=== PATIENT | female | born 1950 | race Caucasian/White ===

== ENCOUNTER 2018-10-26 18:58 | Observation (INO) | payer BC ==
[~2018-10-26] VITALS: Ht 165.1 cm; Wt 90.6 kg
[~2018-10-26 18:58] MED LIST: ASPI-535 PO; ATOR40TA68 PO; FLEXIRIL; GABA300C16 PO; HYDR-3605 PO; METF500T PO
--- NOTE | 2018-10-26 20:59 | ERD ---
ER Documentation Chief Complaint Chief Complaint SUBSTERNAL PRESSURE X 6 DAYS WITH DIZZINESS HPI The patient is a 68-year-old female, presenting with acute substernal chest pressure, associated with dizziness, dyspnea intermittently for the last 6 days, non-provoked, nonradiating, 5 or 10, no aggravating/relieving factor, similar s ymptoms previously. She denies fever, chills, neck pain, abdominal pain, vomiting, dysuria, diarrhea. She does not smoke nor drink Past medical history: Diabetes mellitus, hyperlipidemia, GERD, fibromyalgia Past surgical history: Bilateral knee arthroscopy ROS All systems reviewed and are negative except as per history of present illness. Medications Home Meds Reported Medications Aspirin Ec (Aspir 81) 81 Mg Tablet.dr, 81 MG PO DAILY, TAB 07/27/14 Metformin Hcl (Glucophage) 500 Mg Tablet, 500 MG PO DAILY, TAB 07/27/14 [Flexiril] No Conflict Check, 10 TID 07/27/14 Hydrocodone Bit/Acetaminophen (Anexsia 7.5/325 Mg Tablet) 1 Tab Tablet, 1 TAB PO PRN for PAIN 07/27/14 Atorvastatin* (Atorvastatin*) 40 Mg Tablet, 40 MG PO HS, TAB 07/27/14 Gabapentin* (Gabapentin*) 300 Mg Capsule, 300 MG PO BID, CAP 07/27/14 Allergies Allergies: Coded Allergies: No Known Drug Allergies (Verified Allergy, Unknown, 07/27/14) PMhx/Soc History of Surgery: No (not stated) Anesthesia Reaction: No Hx Neurological Disorder: No Hx Respiratory Disorders: No Hx Cardiac Disorders: No Hx Psychiatric Problems: No Hx Miscellaneous Medical Probl: Yes (L knee injury, L shld rotator cuff injury, R elbow lat cond injury per pt.) Hx Alcohol Use: No Hx Substance Use: No Hx Tobacco Use: No Physical Exam Vitals Vital Signs Date Temp Pulse Resp B/P (MAP) Pulse Ox O2 O2 Flow FiO2 Time Delivery Rate 10/26/18 86 14 157/84 98 Room Air 20:47 (108) 10/26/18 97.9 96 16 212/104 99 19:26 (140) Physical Exam Const: No acute distress. Head: Atraumatic. Eyes: Normal Conjunctiva. ENT: Normal External Ears, Nose and Mouth. Neck: Full range of motion. No meningismus. Resp: Clear to auscultation bilaterally. Cardio: Regular rate and rhythm. Abd: Soft, non distended, normal bowel sounds, non tender. Skin: No petechiae or rashes. Back: No midline or flank tenderness. Ext: No cyanosis, or edema. Neur: Awake and alert. No focal deficit Psych: Normal Mood and Affect. Result Diagram: 10/26/18210310/26/182149 Results 24 hrs Laboratory Tests Test 10/26/18 21:04 10/26/18 21:50 White Blood Count 7.3 10^3/ul Red Blood Count 4.60 10^6/ul Hemoglobin 13.2 g/dl Hematocrit 41.0 % Mean Corpuscular Volume 89.1 fl Mean Corpuscular Hemoglobin 28.7 pg Mean Corpuscular Hemoglobin Concent 32.2 g/dl Red Cell Distribution Width 14.0 % Platelet Count 306 10^3/UL Mean Platelet Volume 10.1 fl Immature Granulocytes % 0.100 % Neutrophils % 60.4 % Lymphocytes % 31.0 % Monocytes % 5.6 % Eosinophils % 2.2 % Basophils % 0.7 % Nucleated Red Blood Cells % 0.0 /100WBC Immature Granulocytes # 0.010 10^3/ul Neutrophils # 4.4 10^3/ul Lymphocytes # 2.3 10^3/ul Monocytes # 0.4 10^3/ul Eosinophils # 0.2 10^3/ul Basophils # 0.1 10^3/ul Nucleated Red Blood Cells # 0.0 10^3/ul Sodium Level 140 mmol/L Potassium Level 4.7 mmol/L Chloride Level 103 mmol/L Carbon Dioxide Level 29 mmol/L Anion Gap 8 Blood Urea Nitrogen 18 mg/dl Creatinine 0.58 mg/dl Est Glomerular Filtrat Rate mL/min > 60 mL/min Glucose Level 123 mg/dl Calcium Level 9.0 mg/dl Troponin I < 0.012 ng/ml B-Type Natriuretic Peptide 26 PG/ML Current Medications Medications Dose Sig/Chani Start Time Status Last (Trade) Ordered Route PRN Stop Time Admin Dose Reason Admin Aspirin 324 mg ONCE ONCE 10/26/18 DC 10/26/18 (Aspirin) PO 22:00 21:54 10/26/18 22:01 1 inch ONCE ONCE 10/26/18 DC 10/26/18 Nitroglycerin TD 22:00 21:53 10/26/18 22:01 (Nitroglyceri n 2% Oint) Aspirin 81 mg DAILY PO 10/27/18 (Halfprin) 09:00 40 mg HS PO 10/27/18 Atorvastatin 21:00 Calcium (Lipitor) Gabapentin 300 mg BID PO 10/27/18 (Neurontin) 09:00 1 tab Q6 PRN PO 10/26/18 Acetaminophen PAIN 23:00 / Hydrocodone Bitart ([place] (7.5-325)) IV Flush 3 ml PER 10/26/18 (NS 3 ml) PROTOCOL IV 23:00 Ondansetron 4 mg Q6H PRN 10/26/18 HCl (Zofran IV 23:00 Inj) NAUSEA/VOMITI NG 1 tab Q5M PRN 10/26/18 Nitroglycerin SL .CHEST 23:00 PAIN (Nitroglyceri n (Sl Tab) 0.4 Mg) 650 mg Q6H PRN 10/26/18 Acetaminophen PO .PAIN 1-3 23:00 (Tylenol OR TEMP Tab) Morphine 2 mg Q4H PRN 10/26/18 Sulfate IV .PAIN 23:00 (morphine) 7-10 Docusate 100 mg Q12H PRN 10/26/18 Sodium PO 23:00 (Colace) .CONSTIPATION Bisacodyl 5 mg DAILY PRN 10/26/18 (Dulcolax) PO 23:00 .CONSTIPATION Procedures/[place] [address] Radiology Main Line: [phone] DIAGNOSTIC IMAGING REPORT Patient: ERINN READ : 1950 Age: 68 Sex: F MR #: [id number] DOS: 10/26/182058 Ordering MD: LON RAMIREZ MD Location: E/R Room/Bed: PROCEDURE: XR Chest. CLINICAL INDICATION: Chest pain TECHNIQUE: Single portable view of the chest was obtained COMPARISON: No priors for comparison FINDINGS: The trachea is midline. The cardiac silhouette is mildly enlarged and pulmonary vascularity are within normal limits. The lungs are clear. The costophrenic angles are sharp. IMPRESSION: 1. Mild cardiomegaly. No evidence of acute cardiopulmonary disease. RPTAT: AAPP Physician Carmen Date Time Electronically viewed and signed by Sharla Vela Physician on 10/26/2018 23:01 JL/ CC: LON RAMIREZ MD [id number] EKG: Read by emergency physician Rate/Rhythm: Normal Sinus Rhythm 99 beats/min QRS, ST, T-waves: No ST elevation, no T inversion Impression: Normal EKG MEDICAL MAKING DECISION: The patient is a 68-year-old female with multiple cardiac risk factors, presenting with acute chest pain of unclear etiology, concerning for acute ACS. She was treated with aspirin 305 mg p.o. and 1 inch of nitroglycerin ointment to the chest wall for acute chest pain with good response The differential diagnoses considered include but are not limited to acute coronary syndrome, acute myocardial infarction, pericarditis, pulmonary embolism, aortic dissection, pneumonia, pleural effusion, pneumothorax, GERD, chest wall pain. Departure Diagnosis: Primary Impression: Chest pain Condition: Stable Comments The patient's blood pressure was elevated (>120/80) but appears stable without evidence of hypertension emergency or urgency. The patient was counseled about the risks of hypertension and urged to pursue outpatient monitoring and therapy within a week with their primary care physician. I discussed the findings with the patient. I discussed the patient with Dr. Melchor at 10:55 PM, who was made aware of the lab, the treatment, the patient condition. The patient is admitted to [facility] Disclaimer: Inadvertent spelling and grammatical errors are likely due to EHR/dictation software use and do not reflect on the overall quality of patient care. Also, please note that the electronic time recorded on this note does not necessarily reflect the actual time of the patient encounter. LON RAMIREZ MD Oct 26, 2018 20:59
[2018-10-26] MEDS ORDERED: ASPIRIN 81 MG TAB PO ONE (22:00)
[2018-10-26] MEDS ORDERED: NITROGLYCERIN 2% 1 GM OINT PKT TD ONE (22:00)
[2018-10-26] MEDS ORDERED: HYDROCODONE/APAP (7.5/325) TAB PO PRN (23:00)
[2018-10-26] MEDS ORDERED: NITROGLYCERIN (SL) 0.4 MG TAB SL PRN (23:00)
[2018-10-26] MEDS ORDERED: DOCUSATE SODIUM 100 MG CAP PO PRN (23:00)
[2018-10-26] MEDS ORDERED: BISACODYL (EC) 5 MG TAB PO PRN (23:00)
[2018-10-26] MEDS ORDERED: ACETAMINOPHEN 325 MG TAB PO PRN (23:00)
[2018-10-26] MEDS ORDERED: NACL 0.9% 3 ML SYG IV SCH (23:00)
[2018-10-26] MEDS ORDERED: morphine 2 MG INJ IV PRN (23:00)
[2018-10-26] MEDS ORDERED: ONDANSETRON 4 MG INJ IV PRN (23:00)
--- NOTE | 2018-10-26 23:03 | HP ---
Date/Time of Note Date/Time of Note DATE: 10/26/18 TIME: 23:02 Assessment/Plan VTE Prophylaxis SCD applied (from Nsg): Yes Pharmacological prophylaxis: NA/contraindicated Pharm contraindication: low risk/ambulating Lines/Catheters IV Catheter Type (from Nrsg): [place] Lock Assessment/Plan Hospital Course This is a 68-year-old female being admitted to the telemetry floor for: #1 chest pain: Rule out ACS versus GI etiology. Trend cardiac enzymes x3, the first that was negative. Will check an echocardiogram. Will consult cardiology . PRN nitro/morphine. Patient does have a history of fibromyalgia and GERD and she also has tenderness to palpation at the epigastric region. She has been taking Aleve as well. So this could be a GI etiology as well, however will assess for cardiac etiology first. Consider GI consultation. #2 fibromyalgia: We will continue patient's home medications, will hold Aleve at the current time #3 GERD: Continue PPI, hold Aleve. #4 Hyperlipidemia:, Continue aspirin, statin #5 obesity: We will check hemoglobin A1c, lipid panel, TSH #6 DVT GI prophylaxis: SCDs, PPI Further treatment strategy will be implemented as per the clinical course. Result Diagram: 10/26/18210310/26/182149 Results 24hrs Laboratory Tests Test 10/26/18 21:04 10/26/18 21:50 White Blood Count 7.3 Red Blood Count 4.60 Hemoglobin 13.2 Hematocrit 41.0 Mean Corpuscular Volume 89.1 Mean Corpuscular Hemoglobin 28.7 L Mean Corpuscular Hemoglobin Concent 32.2 Red Cell Distribution Width 14.0 Platelet Count 306 Mean Platelet Volume 10.1 Immature Granulocytes % 0.100 Neutrophils % 60.4 Lymphocytes % 31.0 Monocytes % 5.6 Eosinophils % 2.2 Basophils % 0.7 Nucleated Red Blood Cells % 0.0 Immature Granulocytes # 0.010 Neutrophils # 4.4 Lymphocytes # 2.3 Monocytes # 0.4 Eosinophils # 0.2 Basophils # 0.1 Nucleated Red Blood Cells # 0.0 Sodium Level 140 Potassium Level 4.7 Chloride Level 103 Carbon Dioxide Level 29 Anion Gap 8 Blood Urea Nitrogen 18 Creatinine 0.58 Est Glomerular Filtrat Rate mL/min > 60 Glucose Level 123 Calcium Level 9.0 Troponin I < 0.012 B-Type Natriuretic Peptide 26 HPI/ROS Admit Date/Time Admit Date/Time Hx of Present Illness Chief complaint: Substernal chest pain x1 The patient is a 68-year-old female with past medical history of fibromyalgia, arthritis, GERD and lactose intolerance and IBS who presented to the emergency department with substernal chest pain: Patient reports that she has had on and off chest presenting with acute substernal chest pain for the last 1 week. She states that it is associated with shortness of breath. She also states that on Wednesday night she woke up with the chest pain and had shortness of breath and also had dizziness which alarmed her. She has been taking Aleve along with her other medications for her fibromyalgia and her arthritis. She denies any nausea vomiting or diarrhea. She denies any lower extremity edema. She does not report that her symptoms are not associated with food. Allergies: NKDA Medications: Flexeril Lansoprazole Tobramycin/dexamethasone ophthalmic drops Biotin Aleve Aspirin Atorvastatin Gabapentin [place] ROS Const: As per HPI Eyes : No pain discharge or redness or change in visual acuity ENT: No pain, sore throat, congestion, congestion, dysphagia or discharge Respiratory: No shortness of breath, cough, sputum, wheezing, or pleuritic pain Cardiovascular: As per HPI GI : no change in appetite, abdominal pain, nausea, vomiting, diarrhea, constipation, or change in the color his stool Genitourinary: No dysuria, hematuria, flank pain , discharge or CVA tenderness Musculoskeletal: No joint pain, back pain, neck pain, restricted range of motion in neck or joints Skin: No rash, bruising or hives Neuro: As per HPI Endocrine: No polyuria, polydipsia, temperature intolerance Psych: No hallucination, depression, anxiety or suicidal ideation PMH/Family/Social Past Medical History hyperlipidemia, GERD, fibromyalgia Coded Allergies: No Known Drug Allergies (Unverified Allergy, Unknown, 10/27/18) Past Surgical History Bilateral meniscal surgeries, cholecystectomy, x1 Family History Significant Family History: no pertinent family hx Social History Alcohol Use: none Smoking Status: Never smoker Drug Use: none Exam/Review of Systems Vital Signs Vitals Vital Signs Date Temp Pulse Resp B/P (MAP) Pulse Ox O2 O2 Flow FiO2 Time Delivery Rate 10/26/18 86 14 157/84 98 Room Air 20:47 (108) 10/26/18 97.9 19:26 Exam Exam General: Patient is a pleasant female currently lying in bed in no acute distress HEENT: Atraumatic, normocephalic. The pupils are equal, round and reactive. Extraocular motor are intact Neck: Supple with full range of motion. No rigidity or meningismus Chest: Mild tenderness palpation over the xiphoid process Lungs: Clear to auscultation bilaterally no crackles rales or wheezing Heart: Normal S1-S2, Regular rhythm and rate. No murmur, S3, or S4 Abdomen: Soft , mild tenderness palpation of the epigastric area, nondistended , bowel sounds are present. No guarding no rebound tenderness , No masses or organomegaly. No costovertebral temporal angle mass Extremities: Normal to inspection, no edema no cyanosis Neurologic: Normal mental status, speech normal, cranial nerves II through XII are intact, motor and sensory are intact, no focal weakness Additional Comments EKG: Normal sinus rhythm at approximately 99 bpm, T wave inversions in lead III, no ST elevations, no concern for acute ischemia PROCEDURE: XR Chest. CLINICAL INDICATION: Chest pain TECHNIQUE: Single portable view of the chest was obtained COMPARISON: No priors for comparison FINDINGS: The trachea is midline. The cardiac silhouette is mildly enlarged and pulmonary vascularity are within normal limits. The lungs are clear. The costophrenic angles are sharp. IMPRESSION: 1. Mild cardiomegaly. No evidence of acute cardiopulmonary disease. RPTAT: AAPP Physician Carmen Date Time Electronically viewed and signed by Physician Camren on 10/26/2018 23:01 JL/ CC: LON RAMIREZ MD [id number] PARVEEN BAKER Oct 26, 2018 23:03
[2018-10-27] VITALS (9 sets, daily range): BP systolic 142–187; BP diastolic 69–84; PULSE 74–88; RESP 18–20; Ht 165.1 cm; Wt 90.6 kg
[2018-10-27] MEDS ORDERED: LORAZEPAM 0.5 MG TAB PO PRN (01:30)
[2018-10-27] MEDS ORDERED: BIOT1TAB12 PO (01:42)
[2018-10-27] MEDS ORDERED: CYCL10TA7 PO (01:42)
[2018-10-27] MEDS ORDERED: LANS30CA PO (01:42)
[2018-10-27] MEDS ORDERED: TOBR5DRO14 OP (01:42)
[2018-10-27] MEDS ORDERED: HYPO40SP TP (01:42)
[2018-10-27] MEDS ORDERED: NAPR220C2 PO (01:42)
[2018-10-27] MEDS ORDERED: DEXTROSE 5%-0.45% NACL 500 ML BAG IV ONE (05:00)
[2018-10-27] MEDS ORDERED: LANSOPRAZOLE 30 MG CAP PO SCH (06:00)
[2018-10-27] MEDS ORDERED: GABAPENTIN 300 MG CAP PO SCH (09:00)
[2018-10-27] MEDS ORDERED: LABETALOL HCL 20MG INJ IV PRN (09:00)
[2018-10-27] MEDS ORDERED: hydrALAzine 20 MG INJ IV PRN (09:00)
[2018-10-27] MEDS ORDERED: ASPIRIN (EC) 81 MG TAB PO SCH (09:00)
[2018-10-27] MEDS: SUCRALFATE (100 MG/ML) 10ML CUP PO SCH ×2 (09:00→12:38)
[2018-10-27] MEDS ORDERED: SUCR1TAB56 PO (14:02)
[2018-10-27] MEDS ORDERED: METO-335 PO (14:02)
--- NOTE | 2018-10-27 14:04 | RADRPT ---
Echocardiogram Report Patient Name: ANYI READatient ID: [id number] : 1950 (68y 8m)Study Date: 10/27/2018 7:20:27 AM Gender: FAccession #: [id number] Tech: Amanda [facility] Location: 3[address] Ref.Physician: PARVEEN BAKER Height(Cm): BSA: Weight(Kg): Quality: AdequateOrder Physician: PARVEEN BAKER Account #: Procedures: Echocardiographic Report: Transthoracic echocardiogram with complete 2D, M-Mode, and doppler examination. Indications: Chest Pain. Measurements: 2D/M Mode Doppler Measurement Value Normal Range Measurement Value Normal Range LVIDd 2D 4.3 [ 3.8 - 5.2 ] cm AV Peak Presley 1.4 [ 100.0 - 170.0 ] cm/sec LVIDs 2D 2.7 [ 2.2 - 3.5 ] cm AV Peak PG 8.0 [ 2.0 - 9.0 ] mmHg LVPWd 2D 1.2 [ 0.6 - 0.9 ] cm LVOT Peak Presley 1.0 [ 70.0 - 110.0 ] cm/sec IVSd 2D 1.2 [ 0.6 - 0.9 ] cm LVOT Peak PG 4.0 [ 2.0 - 6.0 ] mmHg AoR Diam 2D 2.7 [ 2.3 - 3.1 ] cm MV E Peak Presley 0.8 [ 60.0 - 130.0 ] cm/sec EDV 2D 84.9 [ 46.0 - 106.0 ] ml MV A Peak Presley 1.1 [ 100.0 - 120.0 ] cm/sec ESV 2D 27.3 [ 14.0 - 42.0 ] ml MV E/A 0.7 [ 0.8 - 1.5 ] ratio EF 2D 67.8 [ 54.0 - 74.0 ] percent MV Decel Time 229 [ 104 - 258 ] msec LA Dimen 2D 3.1 [ 2.7 - 3.8 ] cm Lat E` Presley 0.1 [ 10.0 - 15.0 ] cm/sec Lateral E/E` 10.0 [ 1.0 - 2.0 ] ratio Med E` Presley 0.1 cm/sec MV E/A 0.7 [ 0.8 - 1.5 ] ratio RA Pressure 3.0 mmHg Findings: Left Ventricle: Normal left ventricular systolic function. Normal left ventricular cavity size. Mild concentric left ventricular hypertrophy. Ejection fraction is visually estimated at 60 %. Tissue Doppler/Mitral Doppler indices are consistent with impaired relaxation (Stage I diastolic dysfunction). Right Ventricle: Normal right ventricular size. Normal right ventricular systolic function. Left Atrium: The left atrium is normal in size. Right Atrium: The right atrium is normal in size. Mitral Valve: Mild mitral leaflet calcification. Mild mitral annular calcification. Trace mitral regurgitation. Aortic Valve: No significant aortic stenosis or insufficiency. Aortic cusps appear mildly calcified. Tricuspid Valve: Normal appearance of the tricuspid valve. There is trace tricuspid regurgitation. Pericardium: Normal pericardium with no significant pericardial effusion. Aorta: Normal aortic root. IVC: Normal size and normal respiratory collapse consistent with normal right atrial pressure. Conclusions: Normal left ventricular systolic function. Normal left ventricular cavity size. Mild concentric left ventricular hypertrophy. Ejection fraction is visually estimated at 60 %. Tissue Doppler/Mitral Doppler indices are consistent with impaired relaxation (Stage I diastolic dysfunction). Normal right ventricular size. Normal right ventricular systolic function. The left atrium is normal in size. The right atrium is normal in size. No significant valvular stenosis or regurgitation seen. Normal pericardium with no significant pericardial effusion. Electronically Signed By: Jamie Berger 2018-10-27 14:04:21 PDT
--- NOTE | 2018-10-27 14:15 | PDOCDIS ---
Discharge Instructions CONDITION [id number] Patient Condition: [id number] Stable FOLLOW UP/APPOINTMENTS Follow-up Plan 1. Please follow-up with Dr. Berger as soon as possible 2. Please continue Toprol-XL until your mushroom packer tells me to stop 3. Please follow-up your catalyst unit operator as soon as possible, continue C arafate for now, you must see a catalyst unit operator within 1 week. 4. Please stop baby aspirin and Aleve for now KIMBERLY WALLACE Oct 27, 2018 14:15
--- NOTE | 2018-10-27 14:25 | CONS ---
Assessment/Plan Assessment/Plan Hospital Course (Demo Recall) Chest pain Palpitations Nonsustained ventricular tachycardia Preserved left ventricular ejection fraction Fibromyalgia Patient presents with symptoms of palpitations as well as chest discomfort. Chest discomfort is nonexertional. She is active and tells me with exertion, she denies any chest pain or shortness of breath. Serial cardiac enzymes are negative, ECG with no significant ischemic abnormalities, echocardiogram with preserved left ventricular ejection fraction Telemetry reveals brief episode of NSVT, unclear patient was symptomatic or not during this episode. Discussed the option with the patient including inpatient further ischemic work- up versus outpatient. Given no further symptoms and no evidence of myocardial infarction, she is preferring discharge for outpatient follow-up. I will start the patient on Toprol XL 25 mg p.o. daily, would consider outpatient Holter monitor If patient with any worsening symptoms, patient to go to the closest emergency room Consultation Date/Type/Reason Admit Date/Time Type of Consult Cardiology Reason for Consultation Palpitations and chest pain Date/Time of Note DATE: 10/27/18 TIME: 14:14 Hx of Present Illness Is a 68-year-old female past medical history of fibromyalgia, acid reflux, gastritis who presents with symptoms of palpitations and chest pain. Patient has a sensation of palpitations lasting for seconds with flushing sensation in her face. This is been going on for the past week. She also had another episode similar with also lightheadedness which resolved after a few seconds. She denies exertional chest pain, shortness of breath, dizziness or lightheadedness. On the night of admission, patient woke up with symptoms of chest discomfort. It was in the mid chest, it was associated with shortness of breath. Patient was brought to emergency room and symptoms resolved. She denies any further symptoms of chest pain, she did have brief palpitations this morning lasting seconds. Otherwise denies any recent illness, fevers or chills or increased caffeine intake 12 point review of systems was performed with all pertinent positives and negatives mentioned above and all else is negative Past Medical History Fibromyalgia Irritable bowel syndrome GERD Home Meds Active Scripts Metoprolol Succinate* (Toprol XL*) 25 Mg Tab.sr.24h, 25 MG PO DAILY, #30 TAB Prov:KIMBERLY WALLACE 10/27/18 Sucralfate* (Carafate*) 1 Gm Tab, 1 GM PO Q6 for 7 Days, #28 TAB Prov:KIMBERLY WALLACE 10/27/18 Reported Medications Hypochlorous Acid/Sodium Chlor (Avenova Lid & Lash [place]) 40 Ml [place], 40 ML TP DAILY, SPRAY 10/27/18 Naproxen* (Aleve*) 220 Mg Capsule, 220 MG PO BID, #60 CAP 10/27/18 Biotin/Keratin (Biotin Plus Keratin Tablet) 1 Each Tablet, 1 EACH PO DAILY, TAB 10/27/18 Lansoprazole* (Lansoprazole*) 30 Mg Capsule.dr, 30 MG PO BID, CAP 10/27/18 Tobramycin-Dexamethasone (Tobramycin-Dexamethasone Ophth) 0.3%-0.1% - 5 Ml Drops.susp, 1 DROP OP BID for 10 Days INSTILL 1 DROP TWICE A DAY INTO BOTH EYES FOR 7-10 DAYS; 10 Days 10/27/18 Cyclobenzaprine Hcl* (Cyclobenzaprine Hcl*) 10 Mg Tablet, 10 MG PO TID for 30 Days, #90 10/27/18 Aspirin Ec (Aspir 81) 81 Mg Tablet.dr, 81 MG PO DAILY, TAB 07/27/14 Hydrocodone Bit/Acetaminophen (Anexsia 7.5/325 Mg Tablet) 1 Tab Tablet, 1 TAB PO PRN for PAIN 07/27/14 Atorvastatin* (Atorvastatin*) 40 Mg Tablet, 40 MG PO HS, TAB 07/27/14 Gabapentin* (Gabapentin*) 300 Mg Capsule, 300 MG PO BID, CAP 07/27/14 Discontinued Reported Medications Metformin Hcl (Glucophage) 500 Mg Tablet, 500 MG PO DAILY, TAB 07/27/14 [Flexiril] No Conflict Check, 10 TID 07/27/14 Medications Current Medications Aspirin (Halfprin) 81 mg DAILY PO Last administered on 10/27/18at 08:27; Admin Dose 81 MG; Start 10/27/18 at 09:00 Atorvastatin Calcium (Lipitor) 40 mg HS PO ; Start 10/27/18 at 21:00 Gabapentin (Neurontin) 300 mg BID PO ; Start 10/27/18 at 09:00 Acetaminophen/ Hydrocodone Bitart ([place] (7.5-325)) 1 tab Q6 PRN PO PAIN; Start 10/26/18 at 23:00 IV Flush (NS 3 ml) 3 ml PER PROTOCOL IV ; Start 10/26/18 at 23:00 Ondansetron HCl (Zofran Inj) 4 mg Q6H PRN IV NAUSEA/VOMITING; Start 10/26/18 at 23:00 Nitroglycerin (Nitroglycerin (Sl Tab) 0.4 Mg) 1 tab Q5M PRN SL .CHEST PAIN; Start 10/26/18 at 23:00 Acetaminophen (Tylenol Tab) 650 mg Q6H PRN PO .PAIN 1-3 OR TEMP; Start 10/26/18 at 23:00 Morphine Sulfate (morphine) 2 mg Q4H PRN IV .PAIN 7-10; Start 10/26/18 at 23:00 Docusate Sodium (Colace) 100 mg Q12H PRN PO .CONSTIPATION; Start 10/26/18 at 23:00 Bisacodyl (Dulcolax) 5 mg DAILY PRN PO .CONSTIPATION; Start 10/26/18 at 23:00 Lorazepam (Ativan) 0.25 mg ONCE PRN PO Anxiety; Start 10/27/18 at 01:30; Stop 10/28/18 at 01:29 Lansoprazole (Prevacid) 30 mg BID@0600,1800 PO Last administered on 10/27/18at 05:51; Admin Dose 30 MG; Start 10/27/18 at 06:00 Sucralfate (Carafate Susp) 1 gm QID PO Last administered on 10/27/18at 12:38; Admin Dose 1 GM; Start 10/27/18 at 09:00 Hydralazine HCl (Apresoline) 10 mg Q4H PRN IV sbp >160; Start 10/27/18 at 09:00 Labetalol HCl (Labetalol) 10 mg Q4H PRN IV sbp>160; Start 10/27/18 at 09:00 Metoprolol Succinate (Toprol Xl) 25 mg DAILY PO ; Start 10/27/18 at 14:30; Stat us UNV Allergies: Coded Allergies: No Known Drug Allergies (Unverified Allergy, Unknown, 10/27/18) Family History Significant Family History: no pertinent family hx Social History Alcohol Use: none Smoking Status: Never smoker Drug Use: none Exam/Review of Systems Vital Signs Vitals Vital Signs Date Temp Pulse Resp B/P (MAP) Pulse Ox O2 O2 Flow FiO2 Time Delivery Rate 10/27/18 88 12:00 10/27/18 98.5 20 168/74 96 Room Air 11:29 (105) Intake and Output 10/26/18 10/26/18 10/27/18 1515:00 23:00 07:00 IntakeIntake Total 300 ml BalanceBalance 300 ml Exam Constitutional: alert, oriented (No apparent distress, walking in the room) Head: normocephalic Respiratory: clear to auscultation, normal air movement Cardiovascular: regular rate and rhythm, other (S1-S2 heard) Gastrointestinal: soft, bowel sounds, tender (Epigastric region) Musculoskeletal: other (Discomfort with palpation in the mid chest) Extremities: other (No significant edema) Labs Result Diagram: 10/27/18 0251 10/27/18 0251 Results 24hrs Laboratory Tests Test 10/26/18 21:04 10/26/18 21:50 10/27/18 02:46 10/27/18 02:51 White Blood Count 7.3 7.2 Red Blood Count 4.60 4.32 Hemoglobin 13.2 12.6 Hematocrit 41.0 38.7 Mean Corpuscular 89.1 89.6 Volume Mean Corpuscular 28.7 L 29.2 Hemoglobin Mean Corpuscular 32.2 32.6 Hemoglobin Concent Red Cell 14.0 13.9 Distribution Width Platelet Count 306 294 Mean Platelet Volume 10.1 10.0 Immature 0.100 0.100 Granulocytes % Neutrophils % 60.4 51.6 Lymphocytes % 31.0 38.0 Monocytes % 5.6 7.3 Eosinophils % 2.2 2.4 Basophils % 0.7 0.6 Nucleated Red Blood 0.0 0.0 Cells % Immature 0.010 0.010 Granulocytes # Neutrophils # 4.4 3.7 Lymphocytes # 2.3 2.7 Monocytes # 0.4 0.5 Eosinophils # 0.2 0.2 Basophils # 0.1 0.0 Nucleated Red Blood 0.0 0.0 Cells # Sodium Level 140 147 H Potassium Level 4.7 4.5 Chloride Level 103 108 Carbon Dioxide Level 29 30 Anion Gap 8 9 Blood Urea Nitrogen 18 16 Creatinine 0.58 0.59 Est Glomerular > 60 > 60 Filtrat Rate mL/min Glucose Level 123 103 Calcium Level 9.0 9.3 Troponin I < 0.012 < 0.012 B-Type Natriuretic 26 Peptide Lipase 25 Hemoglobin A1c 6.0 H Magnesium Level 2.1 Total Bilirubin 0.4 Direct Bilirubin 0.00 Indirect Bilirubin 0.4 Aspartate Amino 19 Transf (AST/SGOT) Alanine 18 Aminotransferase (AL T/SGPT) Alkaline Phosphatase 89 Creatine Kinase 34 Creatine Kinase 1.4 Index Creatinine Kinase MB 0.46 (Mass) Total Protein 6.8 Albumin 3.8 Globulin 3.00 Albumin/Globulin 1.26 Ratio Triglycerides Level 194 H Cholesterol Level 194 LDL Cholesterol, 120 Calculated HDL Cholesterol 35 Cholesterol/HDL 5.5 Ratio Thyroid Stimulating 1.820 Hormone (TSH) Test 10/27/18 08:27 Creatine Kinase 40 Creatine Kinase 1.1 Index Creatinine Kinase MB 0.45 (Mass) Troponin I < 0.012 Imaging Imaging ECG sinus rhythm at 90 bpm, normal QRS duration, no significant ischemic ST abnormalities Medications Medications Current Medications Aspirin (Halfprin) 81 mg DAILY PO Last administered on 10/27/18at 08:27; Admin Dose 81 MG; Start 10/27/18 at 09:00 Atorvastatin Calcium (Lipitor) 40 mg HS PO ; Start 10/27/18 at 21:00 Gabapentin (Neurontin) 300 mg BID PO ; Start 10/27/18 at 09:00 Acetaminophen/ Hydrocodone Bitart ([place] (7.5-325)) 1 tab Q6 PRN PO PAIN; Start 10/26/18 at 23:00 IV Flush (NS 3 ml) 3 ml PER PROTOCOL IV ; Start 10/26/18 at 23:00 Ondansetron HCl (Zofran Inj) 4 mg Q6H PRN IV NAUSEA/VOMITING; Start 10/26/18 at 23:00 Nitroglycerin (Nitroglycerin (Sl Tab) 0.4 Mg) 1 tab Q5M PRN SL .CHEST PAIN; Start 10/26/18 at 23:00 Acetaminophen (Tylenol Tab) 650 mg Q6H PRN PO .PAIN 1-3 OR TEMP; Start 10/26/18 at 23:00 Morphine Sulfate (morphine) 2 mg Q4H PRN IV .PAIN 7-10; Start 10/26/18 at 23:00 Docusate Sodium (Colace) 100 mg Q12H PRN PO .CONSTIPATION; Start 10/26/18 at 23:00 Bisacodyl (Dulcolax) 5 mg DAILY PRN PO .CONSTIPATION; Start 10/26/18 at 23:00 Lorazepam (Ativan) 0.25 mg ONCE PRN PO Anxiety; Start 10/27/18 at 01:30; Stop 10/28/18 at 01:29 Lansoprazole (Prevacid) 30 mg BID@0600,1800 PO Last administered on 10/27/18at 05:51; Admin Dose 30 MG; Start 10/27/18 at 06:00 Sucralfate (Carafate Susp) 1 gm QID PO Last administered on 10/27/18at 12:38; Admin Dose 1 GM; Start 10/27/18 at 09:00 Hydralazine HCl (Apresoline) 10 mg Q4H PRN IV sbp >160; Start 10/27/18 at 09:00 Labetalol HCl (Labetalol) 10 mg Q4H PRN IV sbp>160; Start 10/27/18 at 09:00 Metoprolol Succinate (Toprol Xl) 25 mg DAILY PO ; Start 10/27/18 at 14:30; Status Jamie Diego DO Oct 27, 2018 14:25
[2018-10-27] MEDS ORDERED: METOPROLOL (XL) 25 MG TAB PO SCH (14:30)
--- NOTE | 2018-10-27 14:39 | DS ---
Date/Time of Note Date/Time of Note DATE: 10/27/18 TIME: 14:38 Discharge Summary Admission/Discharge Info Admit Date/Time Oct 27, 2018 at 08:58 Discharge Date/Time Patient Condition: Stable Hospital Course Patient is a female the past medical history significant for fibromyalgia, GERD, dyslipidemia, obesity who presents to [facility] for chest pain. Patient was admitted for chest pain rule out but also had epigastric symptoms as well. Patient's underwent acute coronary syndrome rule out and was also seen by cardiology. Patient's troponins were negative x3 and echocardiogram did not show any acute etiologies and did show preserved left ventricular ejection fraction. Cardiology did report the patient did have no nsustained V. tach, however relatively asymptomatic and will place patient on Toprol-XL to be discharged to follow-up in his office as soon as possible for outpatient Holter monitor. Regarding patient's epigastric symptoms, this is likely gastritis or stomach related, lipase negative, patient has been taking Aleve on a daily basis due to fibromyalgia, patient was also taking a baby aspirin for what she said was for heart protection, however patient had no previous indication for baby aspirin such as [place] or CVA. Given patient's epigastric symptoms, I recommended PPI and Carafate and possible GI consultation however patient stated that she has a outpatient welfare investigator and will follow up with him as soon as possible for outpatient follow-up as she feels well and has no symptoms with oral intake. Patient will follow up with gastroenterology as well as cardiology as soon as possible and will be discharged with a prescription of Carafate, as well as metoprolol XL. Patient is to continue PPI. He was also advised patient stop Aleve for now and also baby aspirin as she has no clear indication for it and it also may be contributing to patient's epigastric symptoms. Discharge diagnosis Chest pain, resolved Palpitations, resolving Nonsustained ventricular tachycardia, resolving Fiber myalgia Epigastric pain, likely gastritis, stable Obesity Home Meds Active Scripts Metoprolol Succinate* (Toprol XL*) 25 Mg Tab.sr.24h, 25 MG PO DAILY, #30 TAB Prov:KIMBERLY WALLACE 10/27/18 Sucralfate* (Carafate*) 1 Gm Tab, 1 GM PO Q6 for 7 Days, #28 TAB Prov:KIMBERLY WALLACE 10/27/18 Reported Medications Hypochlorous Acid/Sodium Chlor (Avenova Lid & Lash [place]) 40 Ml [place], 40 ML TP DAILY, SPRAY 10/27/18 Biotin/Keratin (Biotin Plus Keratin Tablet) 1 Each Tablet, 1 EACH PO DAILY, TAB 10/27/18 Lansoprazole* (Lansoprazole*) 30 Mg Capsule.dr, 30 MG PO BID, CAP 10/27/18 Tobramycin-Dexamethasone (Tobramycin-Dexamethasone Ophth) 0.3%-0.1% - 5 Ml Drops.susp, 1 DROP OP BID for 10 Days INSTILL 1 DROP TWICE A DAY INTO BOTH EYES FOR 7-10 DAYS; 10 Days 10/27/18 Cyclobenzaprine Hcl* (Cyclobenzaprine Hcl*) 10 Mg Tablet, 10 MG PO TID for 30 Days, #90 10/27/18 Hydrocodone Bit/Acetaminophen (Anexsia 7.5/325 Mg Tablet) 1 Tab Tablet, 1 TAB PO PRN for PAIN 07/27/14 Atorvastatin* (Atorvastatin*) 40 Mg Tablet, 40 MG PO HS, TAB 07/27/14 Gabapentin* (Gabapentin*) 300 Mg Capsule, 300 MG PO BID, CAP 07/27/14 Discontinued Reported Medications Naproxen* (Aleve*) 220 Mg Capsule, 220 MG PO BID, #60 CAP 10/27/18 Aspirin Ec (Aspir 81) 81 Mg Tablet.dr, 81 MG PO DAILY, TAB 07/27/14 Metformin Hcl (Glucophage) 500 Mg Tablet, 500 MG PO DAILY, TAB 07/27/14 [Flexiril] No Conflict Check, 10 TID 07/27/14 Follow-up Plan 1. Please follow-up with Dr. Berger as soon as possible 2. Please continue Toprol-XL until your tube roller tells me to stop 3. Please follow-up your welfare investigator as soon as possible, continue Carafate for now, you must see a welfare investigator within 1 week. 4. Please stop baby aspirin and Aleve for now Primary Care Provider Care Physician No Primary Time spent on discharge: > 30 minutes Pending Labs Laboratory Tests Test 10/26/18 21:04 10/26/18 21:50 10/27/18 02:46 10/27/18 02:51 White Blood 7.3 7.2 Count 10^3/ul (4.8-10 10^3/ul (4.8-1 .8) 0.8) Red Blood 4.60 4.32 Count 10^6/ul (4.20-5 10^6/ul (4.20- .40) 5.40) Hemoglobin 13.2 12.6 g/dl (12.0-16.0 g/dl (12.0-16. ) 0) Hematocrit 41.0 38.7 % (37.0-47.0) % (37.0-47.0) Mean 89.1 89.6 Corpuscular fl (82.0-101.0) fl (82.0-101.0 Volume ) Mean 28.7 29.2 Corpuscular pg (29.0-33.0) pg (29.0-33.0) Hemoglobin Mean 32.2 32.6 Corpuscular g/dl (32.0-37.0 g/dl (32.0-37. Hemoglobin Conc ) 0) ent Red Cell 14.0 13.9 Distribution % (11.5-14.5) % (11.5-14.5) Width Platelet Count 306 294 10^3/UL (140-41 10^3/UL (140-4 5) 15) Mean Platelet 10.1 10.0 Volume fl (7.4-10.4) fl (7.4-10.4) Immature 0.100 0.100 Granulocytes % % (0.001-0.429) % (0.001-0.429 ) Neutrophils % 60.4 51.6 % (39.0-77.0) % (39.0-77.0) Lymphocytes % 31.0 38.0 % (15.0-51.0) % (15.0-51.0) Monocytes % 5.6 7.3 % (0.0-11.0) % (0.0-11.0) Eosinophils % 2.2 % (0.0-7.0) 2.4 % (0.0-7.0) Basophils % 0.7 % (0.0-2.0) 0.6 % (0.0-2.0) Nucleated Red 0.0 0.0 Blood Cells % /100WBC (0.0-0. /100WBC (0.0-0 0) .0) Immature 0.010 0.010 Granulocytes # 10^3/ul (0.0-0. 10^3/ul (0.0-0 031) .031) Neutrophils # 4.4 3.7 10^3/ul (1.6-7. 10^3/ul (1.6-7 5) .5) Lymphocytes # 2.3 2.7 10^3/ul (0.8-2. 10^3/ul (0.8-2 9) .9) Monocytes # 0.4 0.5 10^3/ul (0.3-0. 10^3/ul (0.3-0 9) .9) Eosinophils # 0.2 0.2 10^3/ul (0.0-0. 10^3/ul (0.0-0 5) .5) Basophils # 0.1 0.0 10^3/ul (0.0-0. 10^3/ul (0.0-0 1) .1) Nucleated Red 0.0 0.0 Blood Cells # 10^3/ul (0.0-0. 10^3/ul (0.0-0 0) .0) Sodium Level 140 147 mmol/L (135-14 mmol/L (135-14 4) 4) Potassium 4.7 4.5 Level mmol/L (3.5-5. mmol/L (3.5-5. 1) 1) Chloride Level 103 108 mmol/L (97-110 mmol/L (97-110 ) ) Carbon Dioxide 29 30 Level mmol/L (21-31) mmol/L (21-31) Anion Gap 8 (5-13) 9 (5-13) Blood Urea 18 16 Nitrogen mg/dl (7-20) mg/dl (7-20) Creatinine 0.58 0.59 mg/dl (0.44-1. mg/dl (0.44-1. 00) 00) Est Glomerular > 60 > 60 Filtrat mL/min (>60) mL/min (>60) Rate mL/min Glucose Level 123 103 mg/dl (70-220) mg/dl (70-220) Calcium Level 9.0 9.3 mg/dl (8.4-10. mg/dl (8.4-10. 2) 2) Troponin I < 0.012 < 0.012 ng/ml (0.000-0 ng/ml (0.000-0 .120) .120) B-Type 26 Natriuretic PG/ML (0-125) Peptide Lipase 25 U/L (23-300) Hemoglobin A1c 6.0 % (0-5.9) Magnesium 2.1 Level mg/dl (1.7-2.5 ) Total 0.4 Bilirubin mg/dl (0.2-1.3 ) Direct 0.00 Bilirubin mg/dl (0.00-0. 20) Indirect 0.4 Bilirubin mg/dl (0-1.1) Aspartate Amino 19 Transf (AST/SGO IU/L (15-46) T) Alanine 18 Aminotransferas IU/L (13-69) e (ALT/SGPT) Alkaline 89 Phosphatase IU/L (42-121) Creatine 34 Kinase IU/L (23-200) Creatine Kinase 1.4 Index Creatinine 0.46 Kinase MB ng/ml (0.0-2.4 (Mass) ) Total Protein 6.8 g/dl (6.1-8.1) Albumin 3.8 g/dl (3.3-4.9) Globulin 3.00 g/dl (1.3-3.2) Albumin/Globuli 1.26 n Ratio Triglycerides 194 Level mg/dl (0-149) Cholesterol 194 Level mg/dl (100-200 ) LDL 120 mg/dl Cholesterol, Calculated HDL 35 Cholesterol mg/dl (35-98) Cholesterol/HDL 5.5 RATIO Ratio Thyroid 1.820 Stimulating MIU/L (0.465-4 Hormone (TSH) .680) Test 10/27/18 08:27 Creatine 40 Kinase IU/L (23-200) Creatine Kinase 1.1 Index Creatinine 0.45 Kinase MB ng/ml (0.0-2.4) (Mass) Troponin I < 0.012 ng/ml (0.000-0. 120) KIMBERLY WALLACE Oct 27, 2018 14:39
[2018-10-27] MEDS ORDERED: ATORVASTATIN 40 MG TAB PO SCH (21:00)
== END 2018-10-27 15:08 | disposition home or self-care (01) ==
LOC: E/R 18:58 → TEL 22:56 → OBSVTOIN 10-27 08:58 → INTOOBSV 10-27 08:58
PROVIDERS: ADMIT Family Medicine; ATTEND Internal Medicine
DX: R07.9 Chest pain, unspecified (principal); R00.2 Palpitations; I47.2 Ventricular tachycardia; M79.7 Fibromyalgia; R10.13 Epigastric pain; E11.9 Type 2 diabetes mellitus without complications; E78.5 Hyperlipidemia, unspecified; K21.9 Gastro-esophageal reflux disease without esophagitis; E66.9 Obesity, unspecified; Z68.33 Body mass index [BMI] 33.0-33.9, adult; Z79.82 Long term (current) use of aspirin; Z79.84 Long term (current) use of oral hypoglycemic drugs
CPT/HCPCS: 36415; 71045; 80048; 80053; 80061; 82550; 82553; 83036; 83690; 83735; 83880; 84443; 84484; 85025; 93005; 93306; 99217; 99285; G0378